=== PATIENT | male | born 1945 | race Caucasian/White ===

== ENCOUNTER 2023-10-20 09:44 | Inpatient (IN) ==
[2023-10-20] MEDS ORDERED: IOPAMIDOL 100 ML BOTTLE IV ONE (09:45)
[2023-10-20] MEDS: methylPREDNISolone SOD SUCC 125 MG/2 ML VIAL IV ONE (10:02)
[2023-10-20] MEDS: LORazepam 2 MG/ML VIAL IV ONE ×2 (10:27→13:07)
[2023-10-20] MEDS: IPRATROPIUM/ALBUTEROL 3 ML AMPUL.NEB NEB ONE ×3 (10:28→17:28)
[2023-10-20 10:42] LABS: Basophils # (Auto) 0.02 K/mcL (0.00-0.30); Basophils % (Auto) 0.1 % (0.0-2.0); Eosinophils # (Auto) 0 K/mcL (0.00-0.70); Eosinophils % (Auto) 0 % (0.0-7.0); Hematocrit 45.3 % (40.1-51.0); Hemoglobin 14.8 g/dL (13.7-17.5); Lymphocytes # (Auto) 0.99 K/mcL (1.50-4.80); Lymphocytes % (Auto) 6.5 % (15.5-49.0); Mean Cell Volume 90.6 fL (80.0-100.0); Mean Corpuscular HGB Conc 32.7 g/dL (31.0-36.0); Mean Platelet Volume 11.6 fL (8.8-12.5); Monocytes # (Auto) 1.36 K/mcL (0.10-0.90); Neutrophils % (Auto) 82.7 % (38.0-78.0); Platelet Count 220 K/mcL (140-440); Red Cell Distribution Width 13.2 % (11.5-14.5); WBC 15.1 K/mcL (4.5-11.0)
[2023-10-20 10:55] LABS: ALT/SGPT 24 U/L (<40); AST/SGOT 77 U/L (<40); Albumin 3.8 gm/dL (3.2-5.2); Albumin/Globulin Ratio 1.1 (1.0-2.3); Alkaline Phosphatase 95 U/L (39-117); Bilirubin,Total 0.5 mg/dL (0.1-1.0); Blood Urea Nitrogen 54 mg/dL (8-23); Carbon Dioxide 22 mmol/L (22-30); Chloride 90 mmol/L (96-108); Globulin 3.6 gm/dL (2.2-3.7); Glomerular Filtration Rate 41; Glucose 127 mg/dL (70-105)
[2023-10-20 11:20] LABS: ABG Methemoglobin 0.4 % (0.4-1.5); Total Hemoglobin 16.4 gm/Dl (13.5-16.5); VBG Base Excess -5 (-2-3); VBG HCO3 23.2 mmol/L (24.0-28.0); VBG Oxygen Saturation 79.4 % (40.0-70.0); VBG PCO2 55.7 mmHg (41.0-51.0); VBG PH 7.24 U (7.32-7.42); VBG PO2 55.8 mmHg (25.0-40.0); VBG Total CO2 24.9 mmol/L (25.0-29.0)
[2023-10-20] MEDS: LEVOFLOXACIN 750 MG/150 ML BAG IV ONE (11:21)
[2023-10-20] MEDS: 0.9 % SODIUM CHLORIDE 500 ML IV ONE ×2 (12:59→13:50)
[2023-10-20] MEDS: OSELTAMIVIR PHOSPHATE 75 MG CAPSULE PO ONE (12:59)
[2023-10-20] MEDS ORDERED: ONDANSETRON 4 MG/2 ML VIAL IV PRN (17:07)
[2023-10-20] MEDS ORDERED: LACTULOSE 20 GM/30 ML ORAL.SOL PO PRN (17:07)
[2023-10-20] MEDS ORDERED: hydrALAZINE 20 MG/ML VIAL IV PRN (17:07)
[2023-10-20] MEDS ORDERED: SENNOSIDES 1 TABLET PO PRN (17:07)
[2023-10-20] MEDS: IPRATROPIUM/ALBUTEROL 3 ML AMPUL.NEB NEB SCH (17:19)
[2023-10-20] MEDS: LORazepam 1 MG TABLET PO PRN (17:22)
[2023-10-20] MEDS ORDERED: PIPERACILLIN SODIUM/TAZOBACTAM 3.375 GM in DEXTROSE 5% IN WATER 50 ML IV SCH (18:00)
[2023-10-20] MEDS ORDERED: PIPERACILLIN SODIUM/TAZOBACTAM 3.375 GM in DEXTROSE 5% IN WATER 100 ML IV SCH ×2 (19:00→22:00)
[2023-10-20] MEDS ORDERED: OSELTAMIVIR PHOSPHATE 75 MG CAPSULE PO SCH (21:00)
[2023-10-20] MEDS: 0.9 % SODIUM CHLORIDE 10 ML SYRINGE IV SCH (22:00)
[2023-10-20] MEDS: MEROPENEM 1 GM in 0.9 % SODIUM CHLORIDE 50 ML IV SCH (22:30)
[2023-10-20] MEDS: methylPREDNISolone SOD SUCC 125 MG/2 ML VIAL IV SCH (22:49)
[2023-10-20] MEDS: OSELTAMIVIR PHOSPHATE 30 MG CAPSULE PO SCH (22:51)
[2023-10-20] MEDS: morphine 2 MG/ML VIAL IV PRN (22:51)
[2023-10-20] MEDS: DOCUSATE SODIUM 100 MG CAPSULE PO SCH (22:51)
[2023-10-20] MEDS: HEPARIN 5,000 UNIT/ML VIAL SQ SCH (22:51)
[2023-10-20] MEDS: morphine 2 MG/ML VIAL ONE (22:53)
[2023-10-21] MEDS: morphine 2 MG/ML VIAL ONE (05:45)
[2023-10-21 06:18] LABS: Basophils # (Auto) 0.01 K/mcL (0.00-0.30); Basophils % (Auto) 0.1 % (0.0-2.0); Eosinophils # (Auto) 0 K/mcL (0.00-0.70); Eosinophils % (Auto) 0 % (0.0-7.0); Hematocrit 41.5 % (40.1-51.0); Hemoglobin 13.6 g/dL (13.7-17.5); Lymphocytes # (Auto) 0.37 K/mcL (1.50-4.80); Lymphocytes % (Auto) 3.8 % (15.5-49.0); Mean Cell Volume 89.8 fL (80.0-100.0); Mean Corpuscular HGB Conc 32.8 g/dL (31.0-36.0); Mean Platelet Volume 11.1 fL (8.8-12.5); Monocytes # (Auto) 0.51 K/mcL (0.10-0.90); Monocytes % (Auto) 5.2 % (1.0-12.0); Neutrophils % (Auto) 90.3 % (38.0-78.0); Platelet Count 229 K/mcL (140-440); RBC 4.62 M/mcL (4.63-6.08); Red Cell Distribution Width 13.4 % (11.5-14.5); WBC 9.7 K/mcL (4.5-11.0)
[2023-10-21 06:43] LABS: Phosphorous 4.6 mg/dL (2.5-4.5)
[2023-10-21 06:48] LABS: ALT/SGPT 20 U/L (<40); AST/SGOT 58 U/L (<40); Albumin 3.3 gm/dL (3.2-5.2); Alkaline Phosphatase 74 U/L (39-117); Bilirubin,Total 0.3 mg/dL (0.1-1.0); Blood Urea Nitrogen 50 mg/dL (8-23); Calcium 8.9 mg/dL (8.6-10.4); Carbon Dioxide 22 mmol/L (22-30); Chloride 94 mmol/L (96-108); Globulin 3.2 gm/dL (2.2-3.7); Glomerular Filtration Rate 58; Glucose 131 mg/dL (70-105)
[2023-10-21] MEDS: OMEPRAZOLE 20 MG CAPSULE PO SCH (08:30)
[2023-10-21] MEDS: Budesonide-Glycopyr-Formoterol [Breztri Aerosphere] Inhaler INH SCH (08:47)
[2023-10-21] MEDS: FUROSEMIDE 20 MG/2 ML VIAL IV ONE (11:45)
[2023-10-21] MEDS: ENOXAPARIN 40 MG/0.4 ML SYRINGE SQ SCH (11:54)
[2023-10-21] MEDS: SIMVASTATIN 10 MG TABLET PO SCH (22:08)
[2023-10-21] MEDS: guaiFENesin/DEXTROMETHORPHAN 5ML UD CUP PO PRN (22:19)
[2023-10-22 06:27] LABS: Basophils # (Auto) 0.02 K/mcL (0.00-0.30); Basophils % (Auto) 0.2 % (0.0-2.0); Eosinophils # (Auto) 0 K/mcL (0.00-0.70); Eosinophils % (Auto) 0 % (0.0-7.0); Hematocrit 42.6 % (40.1-51.0); Hemoglobin 13.8 g/dL (13.7-17.5); Lymphocytes # (Auto) 0.41 K/mcL (1.50-4.80); Lymphocytes % (Auto) 4.3 % (15.5-49.0); Mean Cell Volume 91.6 fL (80.0-100.0); Mean Corpuscular HGB Conc 32.4 g/dL (31.0-36.0); Mean Platelet Volume 11.2 fL (8.8-12.5); Monocytes # (Auto) 0.57 K/mcL (0.10-0.90); Neutrophils % (Auto) 88.7 % (38.0-78.0); Platelet Count 263 K/mcL (140-440); RBC 4.65 M/mcL (4.63-6.08); Red Cell Distribution Width 13.7 % (11.5-14.5); WBC 9.4 K/mcL (4.5-11.0)
[2023-10-22 07:07] LABS: ALT/SGPT 22 U/L (<40); AST/SGOT 49 U/L (<40); Albumin 3.4 gm/dL (3.2-5.2); Albumin/Globulin Ratio 1.1 (1.0-2.3); Alkaline Phosphatase 71 U/L (39-117); Bilirubin,Total 0.3 mg/dL (0.1-1.0); Blood Urea Nitrogen 60 mg/dL (8-23); Calcium 9.1 mg/dL (8.6-10.4); Carbon Dioxide 26 mmol/L (22-30); Chloride 96 mmol/L (96-108); Globulin 3.2 gm/dL (2.2-3.7); Glomerular Filtration Rate 58; Glucose 157 mg/dL (70-105); Phosphorous 3.6 mg/dL (2.5-4.5)
[2023-10-22] MEDS: ACETAMINOPHEN 325 MG TABLET PO PRN (18:31)
[2023-10-23 05:30] LABS: Basophils # (Auto) 0.01 K/mcL (0.00-0.30); Basophils % (Auto) 0.1 % (0.0-2.0); Eosinophils # (Auto) 0 K/mcL (0.00-0.70); Eosinophils % (Auto) 0 % (0.0-7.0); Hematocrit 40.7 % (40.1-51.0); Lymphocytes # (Auto) 0.28 K/mcL (1.50-4.80); Lymphocytes % (Auto) 3.5 % (15.5-49.0); Mean Cell Volume 93.8 fL (80.0-100.0); Mean Corpuscular HGB Conc 31.9 g/dL (31.0-36.0); Mean Platelet Volume 10.8 fL (8.8-12.5); Monocytes # (Auto) 0.29 K/mcL (0.10-0.90); Monocytes % (Auto) 3.6 % (1.0-12.0); Neutrophils % (Auto) 91.8 % (38.0-78.0); Platelet Count 244 K/mcL (140-440); RBC 4.34 M/mcL (4.63-6.08); Red Cell Distribution Width 13.5 % (11.5-14.5); WBC 8.1 K/mcL (4.5-11.0)
[2023-10-23 05:50] LABS: ALT/SGPT 23 U/L (<40); AST/SGOT 42 U/L (<40); Albumin 3.3 gm/dL (3.2-5.2); Albumin/Globulin Ratio 1.1 (1.0-2.3); Alkaline Phosphatase 61 U/L (39-117); Bilirubin,Total 0.3 mg/dL (0.1-1.0); Blood Urea Nitrogen 59 mg/dL (8-23); Calcium 8.9 mg/dL (8.6-10.4); Carbon Dioxide 30 mmol/L (22-30); Chloride 97 mmol/L (96-108); Globulin 2.9 gm/dL (2.2-3.7); Glomerular Filtration Rate 64; Glucose 159 mg/dL (70-105)
[2023-10-23 05:51] LABS: Phosphorous 4.1 mg/dL (2.5-4.5)
[2023-10-23] MEDS ORDERED: MEROPENEM 1 GM in 0.9 % SODIUM CHLORIDE 50 ML IV SCH (21:00)
== END 2023-10-23 13:45 | DRG 190 ==
LOC: ED 09:44 → ICU 16:54
PROVIDERS: ADMIT Internal Medicine; ATTEND Internal Medicine

== ENCOUNTER 2023-11-23 07:30 | Inpatient (IN) ==
[2023-11-23] MEDS ORDERED: IOPAMIDOL 100 ML BOTTLE IV ONE (07:31)
[2023-11-23 08:58] LABS: Basophils # (Auto) 0.03 K/mcL (0.00-0.30); Basophils % (Auto) 0.1 % (0.0-2.0); Eosinophils # (Auto) 0 K/mcL (0.00-0.70); Eosinophils % (Auto) 0 % (0.0-7.0); Hematocrit 35.5 % (40.1-51.0); Hemoglobin 11.5 g/dL (13.7-17.5); Lymphocytes % (Auto) 1.2 % (15.5-49.0); Mean Cell Volume 92.4 fL (80.0-100.0); Mean Corpuscular HGB Conc 32.4 g/dL (31.0-36.0); Mean Platelet Volume 10.7 fL (8.8-12.5); Monocytes # (Auto) 1.58 K/mcL (0.10-0.90); Monocytes % (Auto) 6.1 % (1.0-12.0); Neutrophils % (Auto) 91.1 % (38.0-78.0); Platelet Count 333 K/mcL (140-440); RBC 3.84 M/mcL (4.63-6.08); Red Cell Distribution Width 15.4 % (11.5-14.5); WBC 25.8 K/mcL (4.5-11.0)
[2023-11-23 09:24] LABS: ALT/SGPT 30 U/L (<40); AST/SGOT 37 U/L (<40); Albumin/Globulin Ratio 0.8 (1.0-2.3); Alkaline Phosphatase 123 U/L (39-117); Bilirubin,Total 0.8 mg/dL (0.1-1.0); Blood Urea Nitrogen 19 mg/dL (8-23); Calcium 8.9 mg/dL (8.6-10.4); Carbon Dioxide 24 mmol/L (22-30); Chloride 88 mmol/L (96-108); Globulin 3.8 gm/dL (2.2-3.7); Glomerular Filtration Rate 86; Glucose 111 mg/dL (70-105)
[2023-11-23 09:25] LABS: Thyroid Stimulating Hormone 1.35 uIU/mL (0.27-5.01)
[2023-11-23] MEDS: fentaNYL 100 MCG/2 ML VIAL IV ONE (10:23)
[2023-11-23] MEDS: CEFEPIME 1 GM VIAL IV ONE (10:35)
[2023-11-23] MEDS: VANCOMYCIN 1,000 MG in 0.9 % SODIUM CHLORIDE 250 ML IV ONE (10:45)
[2023-11-23] MEDS: 0.9 % SODIUM CHLORIDE 1,000 ML IV ONE ×2 (10:58→13:16)
[2023-11-23] MEDS: HYDROcodone/APAP 5/325MG TABLET PO ONE (11:40)
[2023-11-23 12:32] LABS: Appearance,Urine Clear (Clear); Bilirubin,Urine Small mg/dL (Negative); Color,Urine Yellow; Glucose,Urine (UA) Negative (Negative); Ketones,Urine 15 mg/dL (Negative); Leukocyte Esterase,Urine Negative /uL (Negative); Nitrate,Urine Negative (Negative); PH,Urine 6.5 (5.0-9.0); Protein,Urine 30 mg/dL (Negative); Urine Blood Trace-intact ery/mcL (Negative); Urobilinogen,Urine Normal
[2023-11-23 12:51] LABS: Urine Amorphous Crystals Mod /hpf; Urine Hyaline Cast 1 /lph (0-2); Urine RBC 0 /hpf (0-3); Urine Squamous Epithelial Cell 0 /hpf (0-4); Urine WBC 0 /hpf (0-4)
[2023-11-23] MEDS ORDERED: POTASSIUM CHLORIDE 40 MEQ in DEXTROSE 5% IN WATER 500 ML IV PRN (16:32)
[2023-11-23] MEDS ORDERED: ONDANSETRON 4 MG/2 ML VIAL IV PRN (16:32)
[2023-11-23] MEDS ORDERED: VANCOMYCIN PER PHARMACY IV SCH (16:32)
[2023-11-23] MEDS ORDERED: POTASSIUM CHLORIDE 20 MEQ TABLET PO PRN (16:32)
[2023-11-23] MEDS ORDERED: POLYETHYLENE GLYCOL 3350 17 GM PACKET PO PRN (16:32)
[2023-11-23] MEDS ORDERED: MAGNESIUM SULFATE 2 GM/50 ML BAG IV PRN (16:32)
[2023-11-23] MEDS ORDERED: SENNOSIDES 1 TABLET PO PRN (16:32)
[2023-11-23] MEDS: IPRATROPIUM/ALBUTEROL 3 ML AMPUL.NEB NEB PRN (17:40)
[2023-11-23] MEDS: cefTRIAXone 1 GM VIAL IV SCH (18:45)
[2023-11-23] MEDS: BUDESONIDE 0.5 MG/2 ML AMPUL.NEB NEB SCH (19:05)
[2023-11-23] MEDS: BUDESONIDE 0.5 MG/2 ML AMPUL.NEB ONE (19:05)
[2023-11-23] MEDS: hydrOXYzine 25 MG TABLET PO PRN (19:09)
[2023-11-23] MEDS: MELATONIN 3 MG TABLET PO SCH (19:09)
[2023-11-23] MEDS: 0.9 % SODIUM CHLORIDE 10 ML SYRINGE IV SCH (21:20)
[2023-11-23] MEDS: DOCUSATE SODIUM 100 MG CAPSULE PO SCH (21:20)
[2023-11-23] MEDS: diphenhydrAMINE 25 MG CAPSULE PO PRN (21:20)
[2023-11-23] MEDS: ACETAMINOPHEN 325 MG TABLET PO PRN (23:30)
[2023-11-24 06:20] LABS: ALT/SGPT 15 U/L (<40); AST/SGOT 25 U/L (<40); Albumin 2.1 gm/dL (3.2-5.2); Albumin/Globulin Ratio 0.7 (1.0-2.3); Alkaline Phosphatase 89 U/L (39-117); Bilirubin,Direct 0.3 mg/dL (<0.3); Bilirubin,Total 0.4 mg/dL (0.1-1.0); Blood Urea Nitrogen 25 mg/dL (8-23); Calcium 8.1 mg/dL (8.6-10.4); Carbon Dioxide 21 mmol/L (22-30); Chloride 98 mmol/L (96-108); Glomerular Filtration Rate 86; Glucose 105 mg/dL (70-105); Lactate Dehydrogenase 140 U/L (135-225); Phosphorous 3.9 mg/dL (2.5-4.5); Triglycerides 69 mg/dL (<150); Uric Acid 6.9 mg/dL (2.5-8.0)
[2023-11-24 08:17] LABS: Basophils # (Auto) 0.05 K/mcL (0.00-0.30); Basophils % (Auto) 0.2 % (0.0-2.0); Eosinophils # (Auto) 0 K/mcL (0.00-0.70); Eosinophils % (Auto) 0 % (0.0-7.0); Hematocrit 28.3 % (40.1-51.0); Hemoglobin 8.9 g/dL (13.7-17.5); Lymphocytes # (Auto) 0.55 K/mcL (1.50-4.80); Lymphocytes % (Auto) 2.2 % (15.5-49.0); Mean Cell Volume 93.1 fL (80.0-100.0); Mean Corpuscular HGB Conc 31.4 g/dL (31.0-36.0); Mean Platelet Volume 10.7 fL (8.8-12.5); Monocytes # (Auto) 1.75 K/mcL (0.10-0.90); Monocytes % (Auto) 7.1 % (1.0-12.0); Neutrophils % (Auto) 88.7 % (38.0-78.0); Platelet Count 278 K/mcL (140-440); RBC 3.04 M/mcL (4.63-6.08); WBC 24.5 K/mcL (4.5-11.0)
[2023-11-24] MEDS: OMEPRAZOLE 20 MG CAPSULE PO SCH (08:18)
[2023-11-24] MEDS: SIMVASTATIN 10 MG TABLET PO SCH (08:19)
[2023-11-24] MEDS: ENOXAPARIN 40 MG/0.4 ML SYRINGE SQ SCH (08:19)
[2023-11-24 10:06] LABS: Band Neutrophils % 9 % (0-10); Lymphocytes % 5 % (15-49); Monocytes % (Manual) 6 % (1-12); Platelet Estimate NORMAL (Normal); RBC Morphology NORMAL (Normal); Segmented Neutrophils % 80 % (38-78)
[2023-11-24] MEDS: MUPIROCIN OINT 2% 22GM NARES SCH (10:12)
[2023-11-24] MEDS: VANCOMYCIN 1,000 MG in 0.9 % SODIUM CHLORIDE 250 ML IV SCH (10:12)
[2023-11-24] MEDS: POTASSIUM CHLORIDE 20 MEQ TABLET PO PRN (13:27)
[2023-11-25 07:28] LABS: ALT/SGPT 19 U/L (<40); AST/SGOT 27 U/L (<40); Albumin 2.3 gm/dL (3.2-5.2); Albumin/Globulin Ratio 0.8 (1.0-2.3); Alkaline Phosphatase 86 U/L (39-117); Bilirubin,Direct < 0.2 mg/dL (0-0.3); Bilirubin,Total 0.3 mg/dL (0.1-1.0); Blood Urea Nitrogen 32 mg/dL (8-23); Calcium 8.4 mg/dL (8.6-10.4); Carbon Dioxide 25 mmol/L (22-30); Chloride 101 mmol/L (96-108); Globulin 2.9 gm/dL (2.2-3.7); Glomerular Filtration Rate 86; Glucose 108 mg/dL (70-105); Lactate Dehydrogenase 137 U/L (135-225); Phosphorous 2.9 mg/dL (2.5-4.5); Triglycerides 124 mg/dL (<150); Uric Acid 7.6 mg/dL (2.5-8.0)
[2023-11-25] MEDS: HYDROcodone/APAP 5/325MG TABLET PO PRN (07:41)
[2023-11-25 07:51] LABS: Basophils # (Auto) 0.07 K/mcL (0.00-0.30); Basophils % (Auto) 0.4 % (0.0-2.0); Eosinophils # (Auto) 0.03 K/mcL (0.00-0.70); Eosinophils % (Auto) 0.2 % (0.0-7.0); Hematocrit 27.4 % (40.1-51.0); Hemoglobin 8.8 g/dL (13.7-17.5); Lymphocytes # (Auto) 0.72 K/mcL (1.50-4.80); Lymphocytes % (Auto) 3.8 % (15.5-49.0); Mean Cell Volume 91.9 fL (80.0-100.0); Mean Corpuscular HGB Conc 32.1 g/dL (31.0-36.0); Monocytes # (Auto) 1.15 K/mcL (0.10-0.90); Monocytes % (Auto) 6.1 % (1.0-12.0); Neutrophils % (Auto) 83.9 % (38.0-78.0); Platelet Count 287 K/mcL (140-440); RBC 2.98 M/mcL (4.63-6.08); Red Cell Distribution Width 15.9 % (11.5-14.5); WBC 18.9 K/mcL (4.5-11.0)
[2023-11-25] MEDS: VANCOMYCIN 1,000 MG in 0.9 % SODIUM CHLORIDE 250 ML IV SCH (10:39)
[2023-11-25] MEDS: 0.9 % SODIUM CHLORIDE 1,000 ML IV SCH (10:43)
[2023-11-25] MEDS: LACTATED RINGERS 250 ML IV ONE (13:51)
[2023-11-25] MEDS: LACTATED RINGERS 500 ML IV ONE (18:01)
[2023-11-25] MEDS: traMADol 50 MG TABLET PO PRN (18:17)
[2023-11-26 06:49] LABS: Basophils # (Auto) 0.03 K/mcL (0.00-0.30); Basophils % (Auto) 0.2 % (0.0-2.0); Eosinophils # (Auto) 0.11 K/mcL (0.00-0.70); Eosinophils % (Auto) 0.9 % (0.0-7.0); Hematocrit 32.9 % (40.1-51.0); Hemoglobin 10.2 g/dL (13.7-17.5); Lymphocytes # (Auto) 1.17 K/mcL (1.50-4.80); Lymphocytes % (Auto) 9.4 % (15.5-49.0); Mean Cell Volume 95.6 fL (80.0-100.0); Mean Platelet Volume 10.7 fL (8.8-12.5); Monocytes # (Auto) 0.89 K/mcL (0.10-0.90); Monocytes % (Auto) 7.2 % (1.0-12.0); Neutrophils % (Auto) 72.2 % (38.0-78.0); Platelet Count 344 K/mcL (140-440); RBC 3.44 M/mcL (4.63-6.08); Red Cell Distribution Width 15.7 % (11.5-14.5); WBC 12.4 K/mcL (4.5-11.0)
[2023-11-26 07:40] LABS: ALT/SGPT 20 U/L (<40); AST/SGOT 32 U/L (<40); Albumin 2.7 gm/dL (3.2-5.2); Albumin/Globulin Ratio 0.8 (1.0-2.3); Alkaline Phosphatase 103 U/L (39-117); Bilirubin,Direct < 0.2 mg/dL (0-0.3); Bilirubin,Total 0.4 mg/dL (0.1-1.0); Blood Urea Nitrogen 22 mg/dL (8-23); Calcium 8.8 mg/dL (8.6-10.4); Carbon Dioxide 27 mmol/L (22-30); Chloride 101 mmol/L (96-108); Globulin 3.4 gm/dL (2.2-3.7); Glomerular Filtration Rate 105; Glucose 100 mg/dL (70-105); Lactate Dehydrogenase 204 U/L (135-225); Phosphorous 2.4 mg/dL (2.5-4.5); Triglycerides 143 mg/dL (<150); Uric Acid 5.7 mg/dL (2.5-8.0)
[2023-11-26] MEDS: LACTATED RINGERS 500 ML IV ONE (07:52)
[2023-11-26] MEDS: morphine 4 MG/ML VIAL NEB ONE (11:14)
[2023-11-26] MEDS: 0.9 % SODIUM CHLORIDE 1,000 ML IV SCH (16:17)
[2023-11-27 06:39] LABS: Basophils # (Auto) 0.03 K/mcL (0.00-0.30); Basophils % (Auto) 0.3 % (0.0-2.0); Eosinophils # (Auto) 0.04 K/mcL (0.00-0.70); Eosinophils % (Auto) 0.4 % (0.0-7.0); Hematocrit 28.4 % (40.1-51.0); Hemoglobin 8.7 g/dL (13.7-17.5); Lymphocytes % (Auto) 10.7 % (15.5-49.0); Mean Cell Volume 97.3 fL (80.0-100.0); Mean Corpuscular HGB Conc 30.6 g/dL (31.0-36.0); Mean Platelet Volume 10.7 fL (8.8-12.5); Monocytes # (Auto) 0.74 K/mcL (0.10-0.90); Monocytes % (Auto) 7.9 % (1.0-12.0); Neutrophils % (Auto) 66.8 % (38.0-78.0); Platelet Count 293 K/mcL (140-440); RBC 2.92 M/mcL (4.63-6.08); Red Cell Distribution Width 15.9 % (11.5-14.5); WBC 9.4 K/mcL (4.5-11.0)
[2023-11-27 06:50] LABS: ALT/SGPT 14 U/L (<40); AST/SGOT 28 U/L (<40); Albumin 2.3 gm/dL (3.2-5.2); Albumin/Globulin Ratio 0.8 (1.0-2.3); Alkaline Phosphatase 93 U/L (39-117); Bilirubin,Total 0.2 mg/dL (0.1-1.0); Blood Urea Nitrogen 18 mg/dL (8-23); Calcium 8.1 mg/dL (8.6-10.4); Carbon Dioxide 25 mmol/L (22-30); Chloride 103 mmol/L (96-108); Globulin 2.8 gm/dL (2.2-3.7); Glomerular Filtration Rate 105; Glucose 78 mg/dL (70-105)
[2023-11-27] MEDS: LORazepam 1 MG TABLET PO PRN (07:37)
[2023-11-27] MEDS: morphine 4 MG/ML VIAL NEB PRN (16:48)
[2023-11-28 06:58] LABS: Basophils # (Auto) 0.03 K/mcL (0.00-0.30); Basophils % (Auto) 0.3 % (0.0-2.0); Eosinophils # (Auto) 0.07 K/mcL (0.00-0.70); Eosinophils % (Auto) 0.7 % (0.0-7.0); Hematocrit 30.2 % (40.1-51.0); Hemoglobin 9.3 g/dL (13.7-17.5); Lymphocytes # (Auto) 0.84 K/mcL (1.50-4.80); Lymphocytes % (Auto) 8.6 % (15.5-49.0); Mean Cell Volume 97.4 fL (80.0-100.0); Mean Corpuscular HGB Conc 30.8 g/dL (31.0-36.0); Mean Platelet Volume 10.4 fL (8.8-12.5); Monocytes # (Auto) 0.83 K/mcL (0.10-0.90); Monocytes % (Auto) 8.5 % (1.0-12.0); Neutrophils % (Auto) 70.3 % (38.0-78.0); Platelet Count 308 K/mcL (140-440); Red Cell Distribution Width 16.1 % (11.5-14.5)
[2023-11-28 07:10] LABS: ALT/SGPT 15 U/L (<40); AST/SGOT 39 U/L (<40); Albumin 2.3 gm/dL (3.2-5.2); Albumin/Globulin Ratio 0.8 (1.0-2.3); Alkaline Phosphatase 95 U/L (39-117); Bilirubin,Total 0.2 mg/dL (0.1-1.0); Blood Urea Nitrogen 12 mg/dL (8-23); Calcium 8.1 mg/dL (8.6-10.4); Carbon Dioxide 23 mmol/L (22-30); Chloride 107 mmol/L (96-108); Glomerular Filtration Rate 105; Glucose 94 mg/dL (70-105)
[2023-11-28] MEDS ORDERED: morphine 4 MG/ML VIAL NEB PRN (09:04)
[2023-11-28] MEDS ORDERED: ONDANSETRON 4 MG ODT TABLET SL PRN (09:04)
[2023-11-28] MEDS ORDERED: LACTOPEROXI/GLUC OXID/POT THIO 1 EACH GEL..EA. TOPICAL PRN (09:04)
[2023-11-28] MEDS ORDERED: ALBUTEROL SULFATE 2.5 MG/3 ML NEBULIZER NEB PRN (09:04)
[2023-11-28] MEDS: morphine 4 MG/ML VIAL IV PRN (09:10)
[2023-11-28 09:14] LABS: WBC 9.8 K/mcL (4.5-11.0)
[2023-11-28] MEDS: SCOPOLAMINE 1 PATCH PATCH TOPICAL SCH (09:15)
[2023-11-28] MEDS: LORazepam 2 MG/ML VIAL IV PRN (09:53)
[2023-11-28] MEDS ORDERED: 0.9 % SODIUM CHLORIDE 10 ML SYRINGE IV SCH (14:00)
== END 2023-11-28 19:45 | DRG 193 ==
LOC: ED 07:30 → ICU 16:20 → MEDSUR 11-24 14:10
PROVIDERS: ADMIT Internal Medicine; ATTEND Internal Medicine